=== PATIENT | female | born 1960 | race Caucasian/White ===

== ENCOUNTER 2022-05-26 13:50 | Emergency (ER) | payer MEDICAID ==
[~2022-05-26] VITALS: Ht 167.6 cm; Wt 95.0 kg
[2022-05-26] MEDS ORDERED: MORPHINE SULFATE 4 MG/ML CPJ (NOT FOR IM USE) IV STA (14:35)
[2022-05-26] MEDS ORDERED: CEFTRIAXONE 1 G PREMIX 50 ML IV ONE (14:45)
[2022-05-26] MEDS ORDERED: SODIUM CHLORIDE 0.9% 1000ML BAG (SEPSIS BOLUS) IV ONE (14:45)
[2022-05-26 14:52] LABS: BASOPHILS % 0.4 % (0.0-2.0); EOSINOPHILS % 0.8 % (0.0-5.0); HEMATOCRIT. 37.7 % (36.0-48.0); HEMOGLOBIN. 12.3 g/dL (12.0-16.0); LYMPHOCYTES % 15.3 % (20.0-50.0); MEAN CORPUSCULAR VOLUME 92.2 fL (81.0-99.0); MEAN PLATELET VOLUME 7.4 fl (7.4-10.4); MONOCYTES % 8.8 % (2.0-8.0); NEUTROPHILS % 74.7 % (40.0-76.0); PLATELET 293 x1000/uL (130-400); RED BLOOD CELL COUNT 4.09 mill/uL (4.2-5.4); RED CELL DISTRIBUTION WIDTH 13.8 % (11.6-14.6)
[2022-05-26 14:54] LABS: CHLORIDE 99 mEq/L (98-107)
[2022-05-26 15:04] LABS: ETHANOL BLOOD < 10 mg/dL
[2022-05-26 15:24] VITALS: BP 111/70
== END 2022-05-26 19:03 ==
LOC: ER 14:00 → EDBEDREQTM 15:03 → EDBEDREQ 15:03 → EDBEDREQSVC 15:03 → CANBEDREQ 18:53 → ER 19:03
DX: A41.9 Sepsis, unspecified organism (principal); R65.20 Severe sepsis without septic shock; I46.9 Cardiac arrest, cause unspecified; E11.65 Type 2 diabetes mellitus with hyperglycemia; I10 Essential (primary) hypertension; Z91.19 Patient's noncompliance with other medical treatment and regimen
CPT/HCPCS: 31500; 36415; 71045; 80053; 80320; 82962; 83605; 83880; 84145; 85025; 87040; 92950; 93005; 96365; 99291; J0696; J7030; J2270; G0480